=== PATIENT | female | born 1960 | race Caucasian/White ===

== ENCOUNTER 2017-04-24 10:44 | Emergency (ER) | payer OTHER ==
[2017-04-24 10:58] VITALS: BP 171/80; PULSE 81; RESP 16; TEMP 98.2
[2017-04-24] MEDS ORDERED: KETOROLAC 60 MG/2 ML VIAL IM STA (11:08)
[2017-04-24] MEDS ORDERED: HYDROmorphone 0.5 MG/0.5 ML SYRINGE IM STA (11:09)
--- NOTE | 2017-04-24 11:10 | ED ---
General Adult HPI - General Chief complaint: Extremity Injury, Upper Stated complaint: rt wrist injury Time Seen by Provider: 04/24/17 10:50 Source: patient, family, RN notes reviewed Mode of arrival: ambulatory Limitations: no limitations - History of Present Illness Initial comments: This is a 56 old female who states she fell yesterday and hurt her right wrist on the radial aspect. Patient states this continued her to the night and not getting any better today so she came to the emergency department. Patient denies any hand pain. Patient denies any forearm pain. Patient denies elbow pain. Patient denies any other injury. Patient denies any head or neck trauma. - Related Data Home Medications Medication Instructions Recorded Confirmed Atorvastatin [Lipitor] 40 mg PO DAILY 04/24/17 04/24/17 Citalopram Hydrobromide [CeleXA] 40 mg PO DAILY 04/24/17 04/24/17 HYDROcodone/APAP 5-325MG [[place] 1 tab PO ONCE 04/24/17 04/24/17 5-325] LORazepam [Ativan] 0.5 mg PO DAILY PRN 04/24/17 04/24/17 buPROPion HCL [Wellbutrin XL] 150 mg PO DAILY 04/24/17 04/24/17 Previous Rx's Medication Instructions Recorded Hydrocodone/Acetaminophen [[place] 1 each PO Q4HR PRN #20 tab 04/24/17 5-325] Ibuprofen [Motrin] 600 mg PO Q6HR PRN #20 tab 04/24/17 Allergies Allergy/AdvReac Type Severity Reaction Status Date / Time No Known Allergies Allergy Verified 04/24/17 11:12 Review of Systems ROS Statement: Those systems with pertinent positive or pertinent negative responses have been documented in the HPI. ROS Other: All systems not noted in ROS Statement are negative. Past Medical History Past Medical History: No Reported History History of Any Multi-Drug Resistant Organisms: None Reported Additional Past Surgical History / Comment(s): cervical cancer Past Psychological History: Anxiety, Depression Smoking Status: Current every day smoker Past Alcohol Use History: Occasional Past Drug Use History: None Reported General Exam - General Exam Comments Initial Comments: GENERAL Patient is well-developed and well-nourished. Patient is in mild distress. EYES Patient's pupils are equal and round. Extraocular motion is intact SKIN Unremarkable NEURO The patient is alert and oriented 3 PYSCH Patient has normal interpersonal interactions. MUSCULOSKELETAL right wrist is swollen on the radial aspect right above the scaphoid. That area is also very tender to palpation. Limitations: no limitations Course Vital Signs 04/24/17 10:54 Temperature 98.2 F Pulse Rate 81 Respiratory 16 Rate Blood Pressure 171/80 O2 Sat by Pulse 98 Oximetry Procedures - Orthopedic Splinting/Casting Injury #1 Side: right Upper Extremity Injury Location: short arm, wrist Upper Extremity Immobilizer: volar splint Medical Decision Making - Medical Decision Making x-ray of the wrist shows a distal posterior fracture of the radius. The wrist was splinted. Disposition Clinical Impression: Radius fracture Disposition: HOME SELF-CARE Condition: Good Instructions: Wrist Fracture in Adults (ED) Prescriptions: Hydrocodone/Acetaminophen [[place] 5-325] 1 each PO Q4HR PRN #20 tab PRN Reason: Pain Ibuprofen [Motrin] 600 mg PO Q6HR PRN #20 tab PRN Reason: For pain Referrals: Ant Aranda MD [STAFF PHYSICIAN] - 1-2 days
--- NOTE | 2017-04-24 12:12 | XR ---
EXAMINATION TYPE: XR wrist complete RT DATE OF EXAM: 04/24/2017 CLINICAL HISTORY: Right wrist pain, swelling, and bruising. TECHNIQUE: Frontal, lateral and oblique images of the right wrist are obtained. COMPARISON: None FINDINGS: There is no acute fracture/dislocation evident in the right wrist. The joint spaces in th e right wrist appear within normal limits. Mild diffuse subcutaneous edema is seen . IMPRESSION: There is no acute fracture or dislocation in the right wrist.
== END 2017-04-24 12:08 | disposition home or self-care (01) ==
LOC: EC 10:44
DX: S52.501A Unspecified fracture of the lower end of right radius, initial encounter for closed fracture (principal); F32.9 Major depressive disorder, single episode, unspecified; F41.9 Anxiety disorder, unspecified; F17.200 Nicotine dependence, unspecified, uncomplicated; Z85.41 Personal history of malignant neoplasm of cervix uteri; Z79.899 Other long term (current) drug therapy; W01.0XXA Fall on same level from slipping, tripping and stumbling without subsequent striking against object, initial encounter; Y99.0 Civilian activity done for income or pay
CPT/HCPCS: 73110; 99283; 29125; 96372 ×2; J1885; J1170

== ENCOUNTER → 2021-06-08 | Outpatient (CLI) | payer OTHER ==
[2021-06-08 09:02] VITALS: BP 134/64; PULSE 77; RESP 19; TEMP 97.5
--- NOTE | 2021-06-08 10:23 | P.HPOB ---
History of Present Illness H&P Date: 06/08/21 Chief Complaint: The patient is here for her routine gynecologic exam. This is a 68-year-old with an LMP of approximately 2006. She is here to establish with this office. She has records of her previous abnormal Pap smear and conization results from 2016. She had an abnormal Pap smear on 05/01/2015 which showed low-grade COLTEN. She had a colposcopic examination with ECC which was positive for high-grade COLTEN on the ECC. The records indicate that she had a conization of the cervix on 08/17/2015 which showed OCRY-3 with negative margins. ECC done at the time of the conization was benign. She states she did not have follow-up after the conization because her doctor left the practice. She has not had a pelvic exam done since then. The doctor who did the conization was Dr. Adeline Rowland and it was done at [facility]. She is without gynecologic complaints and denies any postmenopausal bleeding. Review of Systems The patient's weight has been stable over the last year. She denies respiratory, cardiac, or G.I. problems. Past Medical History Past Medical History: Hyperlipidemia Additional Past Medical History / Comment(s): IBS, right rotator cuff problems. 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 She did have CORY-3 of the cervix treated with conization in 2016. History of Any Multi-Drug Resistant Organisms: None Reported Additional Past Surgical History / Comment(s): Conization of the cervix for CORY- 3 in 2016. Cataract surgery. Past Psychological History: Anxiety, Depression Smoking Status: Current every day smoker (4 cigarettes per day) Past Alcohol Use History: Abuse Additional Past Alcohol Use History / Comment(s): History of heavy alcohol use in the past. She states she has not been drinking since 1999. Past Drug Use History: None Reported Additional History: She is a and has been with her current boyfriend since 2001. She lives with him. 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 - Past Family History Mother Family Medical History: Dementia, Hyperlipidemia Father Additional Family Medical History / Comment(s): Heart disease. Brother(s) Additional Family Medical History / Comment(s): Hemochromatosis. Sister(s) Additional Family Medical History / Comment(s): from liver disease. Medications and Allergies Home Medications Medication Instructions Recorded Confirmed Type Atorvastatin [Lipitor] 40 mg PO DAILY 04/24/17 06/08/21 History Citalopram Hydrobromide [CeleXA] 40 mg PO DAILY 04/24/17 06/08/21 History Ibuprofen [Motrin] 600 mg PO Q6HR PRN #20 tab 04/24/17 06/08/21 Rx LORazepam [Ativan] 0.5 mg PO DAILY PRN 04/24/17 06/08/21 History buPROPion HCL [Wellbutrin XL] 150 mg PO DAILY 04/24/17 06/08/21 History Cholecalciferol [Vitamin D3 (25 25 mcg PO DAILY 06/08/21 06/08/21 History Mcg = 1000 Iu)] L.acidoph,Paracasei, B.lactis 1 capsule PO DAILY 06/08/21 06/08/21 History [Probiotic] Allergies Allergy/AdvReac Type Severity Reaction Status Date / Time No Known Allergies Allergy Verified 06/08/21 08:52 Exam Vital Signs Temp Pulse Resp BP Pulse Ox 06/08/21 08:58 97.5 F L 77 19 134/64 97 Intake and Output 06/07/21 06/08/21 06/08/21 22:59 06:59 14:59 Other: Weight 69.853 kg Height 5 feet 5 inches, weight 154 pounds, BMI 25.6. This is a well-developed well-nourished white female who is alert and oriented times 3 in no acute distress. HEENT: Within normal limits. NECK: Supple without mass or thyromegaly. CHEST AND LUNGS: Clear to auscultation. HEART: Regular rate and rhythm. BREASTS: Are without mass or discharge. AXILLARY EXAM: Negative for adenopathy. BACK: Negative for CVA tenderness. ABDOMEN: Soft, nontender, without palpable masses. PELVIC EXAM: Normal external genitalia with mild atrophy. Cervix and vagina appear normal with mild atrophy. The cervix is somewhat flush with the posterior vagina consistent with her previous conization procedure. The cervix is somewhat stenotic secondary to atrophy and her previous conization. There are no cervical lesions noted. There is no unusual discharge. There is no evidence of prolapse. The uterus is midposition, nongravid size and nontender. There are no palpable adnexal masses or tenderness. RECTAL EXAM: Rectovaginal exam is negative for mass or tenderness and is negative for occult blood. EXTREMITIES: Nontender. IMPRESSION: 1. 60-year-old menopausal female who is status post cervical conization for CORY-3 in 2016 who has not had follow-up since then. 2. Normal gynecologic exam. PLAN: 1. Pap smear cotest was performed. I have stressed the importance of having regular exams done and adequate follow-up following her conization. We will discuss the appropriate follow-up after her current Pap smear cotest results have been reviewed. 2. Self breast awareness was discussed with the patient. We have also discussed symptoms associated with inflammatory breast cancer. 3. Screening mammogram is scheduled for next week per the patient. The order slip was given to the patient for this. 4. Osteoporosis prevention was discussed. I have stressed the importance of adequate calcium, vitamin D and regular exercise. Recommended amounts of calcium and vitamin D were also discussed. The patient states she is also scheduled for her first bone density test next week. The order slip was given to the patient for this. 5. She did have her Covid vaccination series consisting of 2 moderna vaccinations. She did not have a booster and she states this is because she had a reaction with the second vaccination. 6. She is scheduled for a colonoscopy. She states she did have a Cologuard test which was positive. This is being done through her PCP. 7. She was advised to return in one year for her annual well woman exam and as needed.
== END ==
LOC: WWCWWP 08:45
PROVIDERS: ATTEND Obstetrics & Gynecology
DX: Z01.419 Encounter for gynecological examination (general) (routine) without abnormal findings (principal); E78.5 Hyperlipidemia, unspecified; F41.9 Anxiety disorder, unspecified; F32.A Depression, unspecified; F17.210 Nicotine dependence, cigarettes, uncomplicated; Z78.0 Asymptomatic menopausal state

== ENCOUNTER → 2021-07-08 | Outpatient (CLI) | payer OTHER ==
--- NOTE | 2021-07-09 06:10 | BD ---
EXAMINATION TYPE: Axial Bone Density DATE OF EXAM: 07/08/2021 COMPARISON: NONE CLINICAL HISTORY: 60 years year old Female. ICD-10 CODE: Z78.0 POST MENOPAUSAL WITHOUT HRT Height: 5 FT 5 1/2 IN Weight: 150 FRAX RISK QUESTIONS: Alcohol (3 or more units per day): NO Family History (Parent hip fracture): NO Glucocorticoids (More than 3mos): NO (Ex: prednisone, prednisolone, methylprednisolone, dexamethasone, and hydrocortisone). History of Fracture in Adulthood: YES Secondary Osteoporosis: 1. Type 1 Diabetes: NO 2. Hyperthyroidism: NO 3. Menopause before 45: YES 4. Malnutrition: NO 5. Chronic liver disease: NO Rheumatoid Arthritis: NO Current Tobacco Use: YES RISK FACTORS HISTORY OF: Surgery to Spine/Hip(right/left)/Wrist (right/left): NO Family History of Osteoporosis: YES Active: YES Diet low in dairy products/other sources of calcium: NO Postmenopausal woman: YES Take estrogen and/or progesterone medications: NO Lost more than 2 inches in height since high school: NO Frequent falls: NO Poor Health: GOOD Hyperparathyroidism: NO Adrenal Insufficiency: NO MEDICATIONS: Additional Medications: WELLBUTRIN, CELEXA, LIPITOR, VIT D, PROBIOTIC, ALLERGY MEDS, LORAZAPAM Additional History: EXAM MEASUREMENTS: Bone mineral densitometry was performed using the [employer]. Bone mineral density as measured about the Lumbar spine is: ----- L1-L4(G/cm2): 1.180 T Score Values are as follows: ----- L1: 0.1 ----- L2: -0.3 ----- L3: 0.1 ----- L4: 0.0 ----- L1-L4: 0.0 BASELINE Bone mineral density about the R hip (g/cm2): 0.878 Bone mineral density about the L hip (g/cm2): 0.834 T Score values are as follows: -----R Neck: -1.2 -----L Neck: -1.5 -----R Total: -0.9 -----L Total: -0.9 BASELINE FRAX%s: The graph provided illustrates a 13.9 % for a major osteoporotic fx and a 1.3 %for the hips p robability for fx in 10 years time. IMPRESSION: Osteopenia (T Score between -2.5 and -1). There is slightly increased risk of fracture and the patient may be considered for treatment. Re-Screen 2-5 years. NOTE: T-SCORE=SD OF THE YOUNG ADULT MEAN.
--- NOTE | 2021-07-09 10:17 | MM ---
Reason for exam: screening (asymptomatic). Last mammogram was performed 4 years and 6 months ago. History: Patient is postmenopausal and has history of other cancer at age 54. Physical Findings: A clinical breast exam by your physician is recommended on an annual basis and results should be correlated with mammographic findings. MG 3D Screening Mammo W/Cad Bilateral CC and MLO view(s) were taken. Prior study comparison: January 20, 2017, mammogram, performed at [facility]. January 04, 2017, mammogram, performed at [facility]. The breast tissue is heterogeneously dense. This may lower the sensitivity of mammography. There are benign appearing round calcifications bilaterally. There is a tiny chronic nodularity bilaterally. There is no discrete abnormality. ASSESSMENT: Benign, BI-RAD 2 RECOMMENDATION: Routine screening mammogram of both breasts in 1 year.
== END | disposition home or self-care (01) ==
LOC: RADBDWWP 15:27
PROVIDERS: ATTEND Obstetrics & Gynecology
DX: M85.80 Other specified disorders of bone density and structure, unspecified site (principal)
CPT/HCPCS: 77063; 77067; 77080

== ENCOUNTER → 2022-08-23 | Outpatient (CLI) | payer OTHER ==
[2022-08-23 12:50] VITALS: BP 131/71; PULSE 64; RESP 16; TEMP 98.3
--- NOTE | 2022-08-23 13:36 | P.HPOB ---
History of Present Illness H&P Date: 08/23/22 Chief Complaint: The patient is here for her routine gynecologic exam. This is a 61-year-old with an LMP of 2005. The patient is without gynecologic complaints and denies any postmenopausal bleeding. She has a history of a conization of the cervix on 08/17/2015 which showed CORY-3 with negative margins. ECC done at the time of the conization was benign. Her first Pap smear follow-up was done here on 06/08/2021 and showed low-grade COLTEN with negative high-risk HPV testing. Review of Systems The patient has gained 7 pounds over the last year. She denies respiratory, cardiac, or G.I. problems. Past Medical History Past Medical History: Hyperlipidemia Additional Past Medical History / Comment(s): IBS, right rotator cuff problems. 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 She did have CORY-3 of the cervix treated with conization in 2015. History of Any Multi-Drug Resistant Organisms: None Reported Additional Past Surgical History / Comment(s): Conization of the cervix for CORY- 3 in 2015. Cataract surgery. Past Psychological History: Anxiety, Depression Smoking Status: Current every day smoker (4 cigarettes per day.) Past Alcohol Use History: Abuse Additional Past Alcohol Use History / Comment(s): History of heavy alcohol use in the past. She states she has not been drinking since 2021. She currently is wearing a an ankle monitor for alcohol use 08/23/22) Past Drug Use History: None Reported Additional History: She is a and has been with her current current boyfriend since 2021. She does not live with him. 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 - Past Family History Mother Family Medical History: Dementia, Hyperlipidemia Father Additional Family Medical History / Comment(s): Heart disease. Brother(s) Additional Family Medical History / Comment(s): Hemochromatosis. Sister(s) Additional Family Medical History / Comment(s): from liver disease. Medications and Allergies Home Medications Medication Instructions Recorded Confirmed Type Atorvastatin [Lipitor] 40 mg PO DAILY 04/24/17 08/23/22 History Citalopram Hydrobromide [CeleXA] 40 mg PO DAILY 04/24/17 08/23/22 History Ibuprofen [Motrin] 600 mg PO Q6HR PRN #20 tab 04/24/17 08/23/22 Rx LORazepam [Ativan] 0.5 mg PO DAILY PRN 04/24/17 08/23/22 History buPROPion HCL [Wellbutrin XL] 150 mg PO DAILY 04/24/17 08/23/22 History Cholecalciferol [Vitamin D3 (25 25 mcg PO DAILY 06/08/21 08/23/22 History Mcg = 1000 Iu)] Allergies Allergy/AdvReac Type Severity Reaction Status Date / Time No Known Allergies Allergy Verified 08/23/22 12:46 Exam Vital Signs Temp Pulse Resp BP Pulse Ox 08/23/22 12:48 98.3 F 64 16 131/71 97 Intake and Output 08/22/22 08/23/22 08/23/22 22:59 06:59 14:59 Other: Weight 73.028 kg Height 5 feet 6 inches, weight 161 pounds, BMI 26.0. This is a well-developed well-nourished white female who is alert and oriented times 3 in no acute distress. HEENT: Within normal limits. NECK: Supple without mass or thyromegaly. CHEST AND LUNGS: Clear to auscultation. HEART: Regular rate and rhythm. BREASTS: Are without mass or discharge. AXILLARY EXAM: Negative for adenopathy. BACK: Negative for CVA tenderness. ABDOMEN: Soft, nontender, without palpable masses. PELVIC EXAM: Normal external genitalia with mild atrophy. Cervix and vagina appear normal with mild atrophy. The cervix has the appearance of a previous conization. The cervix is symmetric without lesions. There is no unusual discharge. There is no evidence of prolapse. The uterus is midposition, nongravid size and nontender. There are no palpable adnexal masses or tenderness. RECTAL EXAM: Rectovaginal exam is negative for mass or tenderness and is negative for occult blood. EXTREMITIES: Nontender. IMPRESSION: 1. 61-year-old menopausal female with history of cervical conization for CORY-3 in 2016, with normal gynecologic exam. 2. Previous Pap smear showing low-grade COLTEN and negative HPV testing on 06/08/2021. 3. History of osteopenia. PLAN: 1. Pap smear cotest was performed. The ASCCP management guidelines will be used to determine future management. 2. Self breast awareness was discussed with the patient. We have also discussed symptoms associated with inflammatory breast cancer. 3. Screening mammogram was done in June 2022 at [facility] per the patient. She states the results were normal. She will repeat this after 1 year. 4. Osteoporosis prevention was discussed. I have stressed the importance of adequate calcium, vitamin D and regular exercise. Recommended amounts of calcium and vitamin D were also discussed. We will plan on repeating the bone density testing in 1 year since her last one was done on 07/08/2021. 5. Weight control was discussed with the patient. 6. STD prevention was discussed with the patient. 7. She was advised to return in one year for her annual well woman exam.
== END ==
LOC: WWCWWP 12:39
PROVIDERS: ATTEND Obstetrics & Gynecology
DX: Z01.419 Encounter for gynecological examination (general) (routine) without abnormal findings (principal); E78.5 Hyperlipidemia, unspecified; F17.210 Nicotine dependence, cigarettes, uncomplicated; F32.A Depression, unspecified; K58.9 Irritable bowel syndrome, unspecified; M85.80 Other specified disorders of bone density and structure, unspecified site; Z11.51 Encounter for screening for human papillomavirus (HPV)